=== PATIENT | female | born 1955 | race Caucasian/White ===

== ENCOUNTER 2017-07-11 15:37 | Emergency (ER) | payer MEDICAID ==
[~2017-07-11] VITALS: Ht 149.9 cm; Wt 52.0 kg
[2017-07-11 18:14] LABS: BASOPHILS % 1.3 % (0.0-2.0); EOSINOPHILS % 2.6 % (0.0-5.0); HEMOGLOBIN. 12.4 g/dL (12.0-16.0); MEAN CORPUSCULAR HEMOGLOBIN 28.9 pg (28.0-32.0); MEAN CORPUSCULAR VOLUME 85.8 fL (81.0-99.0); MEAN PLATELET VOLUME 7.8 fl (7.4-10.4); MONOCYTES % 7.7 % (2.0-8.0); NEUTROPHILS % 62.4 % (40.0-76.0); PLATELET 331 x1000/uL (130-400); RED BLOOD CELL COUNT 4.31 mill/uL (4.2-5.4)
[2017-07-11 18:21] LABS: CHLORIDE 107 mEq/L (98-107); PROTHROMBIN TIME 10.4 sec (9.4-11.6)
[2017-07-11 19:33] LABS: CLARITY URINE CLEAR (CLEAR); COLOR URINE YELLOW (YELLOW); KETONES URINE NEGATIVE (NEGATIVE); LEUKOCYTE ESTERASE URINE NEGATIVE (NEGATIVE); NITRITE URINE NEGATIVE (NEGATIVE); OCCULT BLOOD URINE NEGATIVE (NEGATIVE); PROTEIN URINE NEGATIVE (NEGATIVE); SPECIFIC GRAVITY URINE 1.021 (1.005-1.030)
[2017-07-11] MEDS ORDERED: MAGNESIUM/ALUMINUM HYDROXIDE/SIMETHICONE 30ML UDC PO STA (22:36)
[2017-07-11] MEDS ORDERED: LOPERAMIDE 2 MG/10 ML UDC PO STA (22:36)
[2017-07-11] MEDS ORDERED: ONDANSETRON 4MG ODT PO STA (22:36)
[2017-07-12 00:17] VITALS: BP 125/66
== END 2017-07-12 00:27 | disposition home or self-care (01) ==
LOC: ER 22:14
DX: R10.13 Epigastric pain (principal); R11.2 Nausea with vomiting, unspecified; R42 Dizziness and giddiness; R19.7 Diarrhea, unspecified; E78.00 Pure hypercholesterolemia, unspecified; Z98.890 Other specified postprocedural states
CPT/HCPCS: 36415; 71045; 80053; 81003; 83690; 84484; 85025; 85610; 93005; 99285; J7030; Q0162

== ENCOUNTER 2018-03-03 19:10 | Emergency (ER) | payer MEDICAID, OTHER ==
[~2018-03-03] VITALS: Ht 149.9 cm; Wt 55.0 kg
[2018-03-04] MEDS ORDERED: ASPIRIN 81MG TABLET PO ONE (03:00)
[2018-03-04 03:29] LABS: BASOPHILS % 1.3 % (0.0-2.0); HEMATOCRIT. 33.4 % (36.0-48.0); LYMPHOCYTES % 26.1 % (20.0-50.0); MEAN CORPUSCULAR HEMOGLOBIN 28.8 pg (28.0-32.0); MEAN CORPUSCULAR VOLUME 87.4 fL (81.0-99.0); MEAN PLATELET VOLUME 7.8 fl (7.4-10.4); MONOCYTES % 9.5 % (2.0-8.0); NEUTROPHILS % 60.1 % (40.0-76.0); PLATELET 316 x1000/uL (130-400); RED BLOOD CELL COUNT 3.83 mill/uL (4.2-5.4); RED CELL DISTRIBUTION WIDTH 19.9 % (11.6-14.6)
[2018-03-04 03:36] LABS: CHLORIDE 111 mEq/L (98-107)
[2018-03-04 04:51] VITALS: BP 132/57
== END 2018-03-04 05:04 | disposition home or self-care (01) ==
LOC: ER 19:10
DX: R07.9 Chest pain, unspecified (principal); B34.9 Viral infection, unspecified; E78.00 Pure hypercholesterolemia, unspecified
CPT/HCPCS: 36415; 71045; 83880; 84484; 93005; 99284